=== PATIENT | female | born 1955 | race African-American/Black ===

== ENCOUNTER 2016-10-25 12:53 | Emergency (ER) | payer BC ==
[~2016-10-25] VITALS: Ht 162.6 cm; Wt 71.0 kg
[~2016-10-25 12:53] MED LIST: BENA40TA66 PO; CHLO25TA27 GT; METO25TA6 PO
[2016-10-25] MEDS ORDERED: ASPIRIN 81MG TABLET PO STA (13:28)
[2016-10-25 14:24] LABS: BASOPHILS % 0.7 % (0.0-2.0); HEMATOCRIT. 43.7 % (36.0-48.0); HEMOGLOBIN. 14.8 g/dL (12.0-16.0); LYMPHOCYTES % 24.5 % (20.0-50.0); MEAN CORPUSCULAR HEMOGLOBIN 29.7 pg (28.0-32.0); MEAN CORPUSCULAR HGB CONC 33.8 g/dL (31.0-37.0); MEAN CORPUSCULAR VOLUME 87.6 fL (81.0-99.0); MEAN PLATELET VOLUME 8.5 fl (7.4-10.4); MONOCYTES % 10.2 % (2.0-8.0); NEUTROPHILS % 58.6 % (40.0-76.0); PLATELET 280 x1000/uL (130-400); RED BLOOD CELL COUNT 4.98 mill/uL (4.2-5.4); RED CELL DISTRIBUTION WIDTH 13.6 % (11.6-14.6); WHITE BLOOD COUNT 8.1 x1000/uL (4.5-11.0)
[2016-10-25 14:38] LABS: D-DIMER 0.41 mg/L FEU (<0.50); PARTIAL THROMBOPLASTIN TIME 25.1 sec (24.0-34.0); PROTHROMBIN TIME 10.7 sec
[2016-10-25 14:40] LABS: ANION GAP 5; CARBON DIOXIDE 31 mEq/L (21-32); CHLORIDE 108 mEq/L (98-107); INDEX HEMOLYSI 1 (1-3); INDEX ICTERIC 1 (1-4); INDEX LIPEMIC 1 (1-3); TROPONIN I < 0.02 ng/mL (0.00-0.04); UREA NITROGEN BLOOD 10 mg/dL (7-21); eGFR > 60 mL/min (>60)
[2016-10-25 17:44] VITALS: BP 147/85
[2016-10-25] MEDS ORDERED: ASPIRIN 81MG TABLET PO NR (18:00)
== END 2016-10-25 18:25 | disposition home or self-care (01) ==
LOC: ER 13:52
DX: R00.2 Palpitations (principal); I10 Essential (primary) hypertension; Z98.890 Other specified postprocedural states
CPT/HCPCS: 36415; 71010; 80048; 84443; 84484; 85025; 85379; 85610; 85730; 93005; 99285; Z7610

== ENCOUNTER 2017-06-23 18:35 | Emergency (ER) | payer BC ==
[~2017-06-23] VITALS: Ht 162.6 cm; Wt 65.0 kg
[2017-06-23] MEDS ORDERED: CLONIDINE 0.1MG TABLET PO ONE (22:00)
[2017-06-23 22:40] LABS: BASOPHILS % 0.7 % (0.0-2.0); EOSINOPHILS % 2.4 % (0.0-5.0); HEMOGLOBIN. 16.1 g/dL (12.0-16.0); LYMPHOCYTES % 29.4 % (20.0-50.0); MEAN CORPUSCULAR HEMOGLOBIN 30.3 pg (28.0-32.0); MEAN CORPUSCULAR VOLUME 90.5 fL (81.0-99.0); MEAN PLATELET VOLUME 8.5 fl (7.4-10.4); MONOCYTES % 9.7 % (2.0-8.0); NEUTROPHILS % 57.8 % (40.0-76.0); PLATELET 302 x1000/uL (130-400); RED BLOOD CELL COUNT 5.31 mill/uL (4.2-5.4); RED CELL DISTRIBUTION WIDTH 14.2 % (11.6-14.6)
[2017-06-23 22:48] LABS: CHLORIDE 108 mEq/L (98-107)
[2017-06-23 22:51] LABS: CARBON DIOXIDE 29 mEq/L (21-32)
[2017-06-23 22:58] LABS: TROPONIN I < 0.02 ng/mL (0.00-0.04)
[2017-06-24 00:45] VITALS: BP 129/86
== END 2017-06-24 00:45 | disposition home or self-care (01) ==
LOC: ER 18:35
DX: R00.2 Palpitations (principal); R42 Dizziness and giddiness; I10 Essential (primary) hypertension; R11.0 Nausea; M19.90 Unspecified osteoarthritis, unspecified site
CPT/HCPCS: 36415; 71045; 80053; 83735; 84484; 85025; 93005; 99285; Z7610

== ENCOUNTER 2018-08-04 11:03 | Emergency (ER) | payer BC ==
[~2018-08-04] VITALS: Ht 162.6 cm; Wt 68.0 kg
[2018-08-04 11:34] VITALS: BP 132/90
== END 2018-08-04 14:11 | disposition left against medical advice (07) ==
LOC: ER 11:03
DX: Z53.21 Procedure and treatment not carried out due to patient leaving prior to being seen by health care provider (principal); J45.909 Unspecified asthma, uncomplicated; I11.9 Hypertensive heart disease without heart failure

== ENCOUNTER 2018-09-21 15:21 | Emergency (ER) | payer BC ==
[~2018-09-21] VITALS: Ht 162.6 cm; Wt 71.0 kg
[2018-09-21] MEDS ORDERED: SODIUM CHLORIDE 0.9% 1,000 ML IV ONE (17:50)
[2018-09-21 18:18] LABS: CHLORIDE 111 mEq/L (98-107)
[2018-09-21 18:19] LABS: BASOPHILS % 0.4 % (0.0-2.0); EOSINOPHILS % 0.5 % (0.0-5.0); HEMATOCRIT. 45.3 % (36.0-48.0); LYMPHOCYTES % 10.1 % (20.0-50.0); MEAN CORPUSCULAR HEMOGLOBIN 29.2 pg (28.0-32.0); MEAN PLATELET VOLUME 7.5 fl (7.4-10.4); MONOCYTES % 6.5 % (2.0-8.0); NEUTROPHILS % 82.5 % (40.0-76.0); PLATELET 326 x1000/uL (130-400); PROTHROMBIN TIME 10.7 sec (9.6-11.0); RED BLOOD CELL COUNT 5.15 mill/uL (4.2-5.4); RED CELL DISTRIBUTION WIDTH 14.5 % (11.6-14.6)
[2018-09-21 18:51] LABS: CLARITY URINE CLEAR (CLEAR); COLOR URINE YELLOW (YELLOW); KETONES URINE NEGATIVE (NEGATIVE); LEUKOCYTE ESTERASE URINE NEGATIVE (NEGATIVE); NITRITE URINE NEGATIVE (NEGATIVE); OCCULT BLOOD URINE TRACE (NEGATIVE); PROTEIN URINE NEGATIVE (NEGATIVE); SPECIFIC GRAVITY URINE 1.015 (1.005-1.030); UROBILINOGEN URINE 0.2 E.U./dL (0.2-1.0)
[2018-09-21 20:22] VITALS: BP 138/75
== END 2018-09-21 20:23 | disposition home or self-care (01) ==
LOC: ER 15:21
DX: R00.2 Palpitations (principal); F41.9 Anxiety disorder, unspecified; J45.909 Unspecified asthma, uncomplicated; F32.9 Major depressive disorder, single episode, unspecified; I10 Essential (primary) hypertension
CPT/HCPCS: 36415; 71045; 80053; 81003; 83880; 84484; 85025; 85610; 93005; 99284; J7030; Z7610

== ENCOUNTER 2018-10-14 18:40 | Emergency (ER) | payer BC ==
[~2018-10-14] VITALS: Ht 162.6 cm; Wt 70.0 kg
[2018-10-14 22:52] LABS: BASOPHILS % 0.4 % (0.0-2.0); EOSINOPHILS % 1.7 % (0.0-5.0); HEMATOCRIT. 47.9 % (36.0-48.0); HEMOGLOBIN. 16.3 g/dL (12.0-16.0); LYMPHOCYTES % 20.1 % (20.0-50.0); MEAN CORPUSCULAR HEMOGLOBIN 29.8 pg (28.0-32.0); MEAN CORPUSCULAR VOLUME 87.6 fL (81.0-99.0); MEAN PLATELET VOLUME 7.8 fl (7.4-10.4); MONOCYTES % 7.4 % (2.0-8.0); NEUTROPHILS % 70.4 % (40.0-76.0); PLATELET 265 x1000/uL (130-400); RED BLOOD CELL COUNT 5.47 mill/uL (4.2-5.4); RED CELL DISTRIBUTION WIDTH 14.5 % (11.6-14.6)
[2018-10-14 22:57] LABS: CHLORIDE 107 mEq/L (98-107)
[2018-10-15 00:45] VITALS: BP 135/88
== END 2018-10-15 00:45 | disposition home or self-care (01) ==
LOC: ER 18:40
DX: R42 Dizziness and giddiness (principal); F41.9 Anxiety disorder, unspecified; F32.9 Major depressive disorder, single episode, unspecified; J45.909 Unspecified asthma, uncomplicated; I11.9 Hypertensive heart disease without heart failure; Z79.899 Other long term (current) drug therapy
CPT/HCPCS: 36415; 84484; 93005; 99284

== ENCOUNTER 2019-12-17 20:11 | Inpatient (IN) | payer BC ==
[~2019-12-17] VITALS: Ht 162.6 cm; Wt 72.1 kg
[2019-12-17 21:45] LABS: CHLORIDE 111 mEq/L (98-107)
[2019-12-17] MEDS ORDERED: ONDANSETRON HCL 4MG/2ML INJ IV ONE (21:45)
[2019-12-17 21:48] LABS: HEMATOCRIT. 42.8 % (36.0-48.0); HEMOGLOBIN. 14.1 g/dL (12.0-16.0); MEAN CORPUSCULAR HEMOGLOBIN 28.3 pg (28.0-32.0); PLATELET 281 x1000/uL (130-400); RED BLOOD CELL COUNT 4.97 mill/uL (4.2-5.4); RED CELL DISTRIBUTION WIDTH 15.8 % (11.6-14.6)
[2019-12-17 22:56] LABS: PLATELET ESTIMATE NORMAL
[2019-12-18] MEDS ORDERED: ALPRAZOLAM 0.5 MG TABLET PO ONE (01:15)
[2019-12-18] MEDS ORDERED: CLONIDINE 0.1MG TABLET PO PRN (01:45)
[2019-12-18] MEDS ORDERED: ACETAMINOPHEN 325MG TABLET PO PRN ×2 (01:45)
[2019-12-18] MEDS ORDERED: ACETAMINOPHEN 650MG SUPP PR PRN ×2 (01:45)
[2019-12-18] MEDS ORDERED: DIPHENHYDRAMINE 50MG/ML VIAL IV PRN (01:45)
[2019-12-18] MEDS ORDERED: ONDANSETRON HCL 4MG/2ML INJ IV PRN (01:45)
[2019-12-18] MEDS ORDERED: MAGNESIUM/ALUMINUM HYDROXIDE/SIMETHICONE 30ML UDC PO PRN (01:45)
[2019-12-18] MEDS ORDERED: HYDROCODONE/ACETAMINOPHEN 5/325MG TABLET PO PRN (01:45)
[2019-12-18] MEDS ORDERED: GUAIFENESIN 200MG/10ML SUGAR FREE UDC PO PRN (01:45)
[2019-12-18] MEDS ORDERED: ACETAMINOPHEN 650MG/20.3ML UDC GT PRN ×2 (01:45)
[2019-12-18] MEDS ORDERED: NA PHOS,M-B/NA PHOS,DI-BA ENEMA 118ML PR PRN (01:45)
[2019-12-18] MEDS ORDERED: DOCUSATE SODIUM 100MG CAPSULE PO PRN (01:45)
[2019-12-18 02:26] VITALS: BP 112/62
[2019-12-18] MEDS ORDERED: BENA10TA74 PO (03:20)
[2019-12-18] MEDS ORDERED: LORA-249 PO (03:20)
[2019-12-18] MEDS ORDERED: METO-396 PO (03:20)
[2019-12-18] MEDS ORDERED: AMLO5TAB88 PO (03:20)
[2019-12-18 04:00] VITALS: BP 120/70
[2019-12-18 07:53] LABS: CREATINE KINASE 87 IU/L (26-192)
[2019-12-18 07:54] LABS: CREATINE KINASE MB FRACTION < 1.0 ng/mL (0.5-3.6)
[2019-12-18 08:00] VITALS: BP 121/72
[2019-12-18] MEDS ORDERED: ENOXAPARIN 40MG/0.4ML SYR SUBCUT SCH (09:00)
[2019-12-18 11:08] LABS: CLARITY URINE CLEAR (CLEAR); COLOR URINE YELLOW (YELLOW); KETONES URINE NEGATIVE (NEGATIVE); LEUKOCYTE ESTERASE URINE NEGATIVE (NEGATIVE); NITRITE URINE NEGATIVE (NEGATIVE); OCCULT BLOOD URINE NEGATIVE (NEGATIVE); PH URINE 6.5 (4.5-8.0); PROTEIN URINE NEGATIVE (NEGATIVE); SPECIFIC GRAVITY URINE 1.013 (1.005-1.030)
[2019-12-18 12:00] VITALS: BP 110/81
[2019-12-18] MEDS ORDERED: LORAZEPAM 0.5MG TABLET PO PRN (14:00)
[2019-12-18] MEDS ORDERED: ALBUTEROL (0.5%) 2.5MG/0.5ML NEB HHN PRN (14:00)
[2019-12-18] MEDS ORDERED: ALBUTEROL (0.083%) 2.5MG/3ML NEB HHN PRN (14:00)
[2019-12-18 16:00] VITALS: BP 121/80
[2019-12-18 17:18] LABS: CREATINE KINASE 80 IU/L (26-192)
[2019-12-18 17:21] LABS: CREATINE KINASE MB FRACTION < 1.0 ng/mL (0.5-3.6)
[2019-12-18 20:00] VITALS: BP 133/88
[2019-12-18] MEDS ORDERED: METOPROLOL TARTRATE 25MG TABLET PO SCH (21:00)
[2019-12-18] MEDS ORDERED: REGADENOSON 0.4 MG/5 ML IV NR (22:00)
[2019-12-19] VITALS: BP 116/67
[2019-12-19 04:00] VITALS: BP 129/87
[2019-12-19 07:07] LABS: CHLORIDE 108 mEq/L (98-107)
[2019-12-19 07:11] LABS: BASOPHILS % 0.2 % (0.0-2.0); HEMATOCRIT. 44.1 % (36.0-48.0); HEMOGLOBIN. 14.8 g/dL (12.0-16.0); LYMPHOCYTES % 24.3 % (20.0-50.0); MEAN CORPUSCULAR HEMOGLOBIN 28.6 pg (28.0-32.0); MEAN CORPUSCULAR VOLUME 85.3 fL (81.0-99.0); MEAN PLATELET VOLUME 8.1 fl (7.4-10.4); MONOCYTES % 8.2 % (2.0-8.0); NEUTROPHILS % 66.3 % (40.0-76.0); PLATELET 299 x1000/uL (130-400); RED BLOOD CELL COUNT 5.17 mill/uL (4.2-5.4); RED CELL DISTRIBUTION WIDTH 15.4 % (11.6-14.6)
[2019-12-19 07:14] LABS: LDL CHOLESTEROL 58 mg/dL (5-100)
[2019-12-19 07:16] LABS: HDL CHOLESTEROL 63 mg/dL (40-59)
[2019-12-19 07:55] VITALS: BP 154/98
[2019-12-19 11:45] VITALS: BP 149/88
[2019-12-19 16:00] VITALS: BP 127/70
== END 2019-12-19 12:53 | disposition left against medical advice (07) | DRG 392 ==
LOC: ER 20:11 → 8WST 12-18 01:18 → ENRESERV 12-18 01:52
PROVIDERS: ADMIT Family Medicine; ATTEND Family Medicine
DX: K21.9 Gastro-esophageal reflux disease without esophagitis (principal); I10 Essential (primary) hypertension; F41.9 Anxiety disorder, unspecified; R00.2 Palpitations; J45.909 Unspecified asthma, uncomplicated; Z53.29 Procedure and treatment not carried out because of patient's decision for other reasons; J32.9 Chronic sinusitis, unspecified
CPT/HCPCS: 36415; 71045; 80053; 80061; 81003; 82550; 82553; 83880; 84443; 84484; 85025; 93005; 93306; 96374; 99285; J1650; J2405

== ENCOUNTER 2020-06-05 21:57 | Emergency (ER) | payer BC ==
[~2020-06-05] VITALS: Ht 165.1 cm; Wt 84.0 kg
[~2020-06-05 21:57] MED LIST changes: +AMLO5TAB88 PO; +BENA10TA74 PO; -BENA40TA66 PO; -CHLO25TA27 GT; +LORA-249 PO; +METO-396 PO; -METO25TA6 PO
[2020-06-05] MEDS ORDERED: LORAZEPAM 0.5MG TABLET PO ONE (22:30)
[2020-06-05 23:36] LABS: CHLORIDE 105 mEq/L (98-107)
[2020-06-05 23:39] LABS: BASOPHILS % 0.4 % (0.0-2.0); EOSINOPHILS % 1.2 % (0.0-5.0); HEMATOCRIT. 49.7 % (36.0-48.0); HEMOGLOBIN. 16.1 g/dL (12.0-16.0); LYMPHOCYTES % 18.7 % (20.0-50.0); MEAN CORPUSCULAR HEMOGLOBIN 28.1 pg (28.0-32.0); MEAN CORPUSCULAR VOLUME 86.8 fL (81.0-99.0); MEAN PLATELET VOLUME 7.8 fl (7.4-10.4); MONOCYTES % 9.6 % (2.0-8.0); NEUTROPHILS % 70.1 % (40.0-76.0); PLATELET 302 x1000/uL (130-400); RED BLOOD CELL COUNT 5.72 mill/uL (4.2-5.4); RED CELL DISTRIBUTION WIDTH 14.4 % (11.6-14.6)
[2020-06-06 00:34] VITALS: BP 157/82
== END 2020-06-06 00:35 | disposition home or self-care (01) ==
LOC: ER 21:57
DX: F41.1 Generalized anxiety disorder (principal); R00.2 Palpitations; I10 Essential (primary) hypertension
CPT/HCPCS: 36415; 71045; 80048; 84443; 84484; 85025; 93005; 99285

== ENCOUNTER 2021-08-18 22:06 | Emergency (ER) | payer BC ==
[~2021-08-18] VITALS: Ht 162.6 cm; Wt 77.0 kg
[2021-08-18 22:52] LABS: BASOPHILS % 0.3 % (0.0-2.0); EOSINOPHILS % 0.7 % (0.0-5.0); HEMATOCRIT. 48.6 % (36.0-48.0); HEMOGLOBIN. 16.4 g/dL (12.0-16.0); LYMPHOCYTES % 15.6 % (20.0-50.0); MEAN CORPUSCULAR HEMOGLOBIN 29.6 pg (28.0-32.0); MEAN CORPUSCULAR VOLUME 87.8 fL (81.0-99.0); MONOCYTES % 10.3 % (2.0-8.0); NEUTROPHILS % 73.1 % (40.0-76.0); PLATELET 311 x1000/uL (130-400); RED BLOOD CELL COUNT 5.54 mill/uL (4.2-5.4); RED CELL DISTRIBUTION WIDTH 14.4 % (11.6-14.6)
[2021-08-18 22:56] LABS: CHLORIDE 108 mEq/L (98-107)
[2021-08-19 00:24] VITALS: BP 144/80
== END 2021-08-19 00:28 | disposition home or self-care (01) ==
LOC: ER 22:06
DX: R07.89 Other chest pain (principal); F41.9 Anxiety disorder, unspecified; I10 Essential (primary) hypertension
CPT/HCPCS: 36415; 71045; 80053; 83880; 84484; 85025; 93005; 99285

== ENCOUNTER 2022-09-16 18:37 | Emergency (ER) | payer BC ==
[~2022-09-16] VITALS: Ht 162.6 cm; Wt 72.8 kg
[2022-09-16 18:45] VITALS: BP 162/95
== END 2022-09-17 01:21 | disposition left against medical advice (07) ==
LOC: ER 18:37
DX: Z53.21 Procedure and treatment not carried out due to patient leaving prior to being seen by health care provider (principal)
CPT/HCPCS: 99281